=== PATIENT | female | born 1960 | race African-American/Black ===

== ENCOUNTER 2024-03-28 13:12 | Emergency (ER) | payer OTHER ==
[2024-03-28 13:32] VITALS: PULSE 88; RESP 16; TEMP 98.4; BMI 32.3
[2024-03-28] MEDS ORDERED: ACETAMINOPHEN 325 MG TABLET (FP) ONE (14:01)
[2024-03-28] MEDS ORDERED: LIDOCAINE 5% TOPICAL PATCH ONE ×2 (14:01→14:27)
[2024-03-28] MEDS: LIDOCAINE 5% TOPICAL PATCH TP ONE ×2 (14:10→14:29)
[2024-03-28] MEDS: ACETAMINOPHEN 325 MG TABLET (FP) PO ONE (14:10)
[2024-03-28] MEDS ORDERED: IBUPROFEN 400 MG TABLET (FP) PO ONE (14:27)
[2024-03-28] MEDS: IBUPROFEN 400 MG TABLET (FP) PO ONE (14:29)
[2024-03-28 15:04] VITALS: BP 167/84
[2024-03-28] MEDS ORDERED: LIDOCAINE PATCH REMOVAL MC ONE ×2 (22:00)
== END 2024-03-28 14:39 | disposition home or self-care (01) ==
LOC: FER 13:12
DX: M54.50 Low back pain, unspecified (principal)
CPT/HCPCS: 99283-25